=== PATIENT | female | born 1945 | race Two or more races ===

== ENCOUNTER 2023-07-15 11:29 | Inpatient (IN) | payer MEDICARE ==
[~2023-07-15] VITALS: Ht 162.6 cm; Wt 52.2 kg
[2023-07-15 13:15] LABS: CALCIUM, SERUM 9.6 mg/dL (8.5-10.1); CREATININE 0.8 mg/dL (0.6-1.3); POTASSIUM 4.3 mmol/L (3.5-5.1)
[2023-07-15 13:20] LABS: BASOPHILS % (AUTO) 0.7 % (0.0-2.0); EOSINOPHILS # (AUTO) 0.3 K/uL (0.0-0.7); EOSINOPHILS % (AUTO) 3.8 % (0.0-6.0); HEMATOCRIT 37 % (33-45); HEMOGLOBIN 12.2 g/dL (11.5-14.8); LYMPHOCYTES # (AUTO) 1.5 K/uL (0.8-4.8); LYMPHOCYTES % (AUTO) 21.9 % (20.0-44.0); MEAN CORPUSCULAR HEMOGLOBIN 31 PG (26.0-33.0); MEAN CORPUSCULAR HGB CONC 33 g/dl (31.0-36.0); MEAN CORPUSCULAR VOLUME 95 fL (82-100); MONOCYTES # (AUTO) 0.7 K/uL (0.1-1.30); MONOCYTES % (AUTO) 10.7 % (2.0-12.0); NEUTROPHILS # (AUTO) 4.3 K/uL (1.8-8.9); NEUTROPHILS % (AUTO) 62.9 % (43.0-81.0); PLATELET COUNT (AUTO) 137 K/uL (150-450); RED BLOOD CELL COUNT(AUTO) 3.91 MIL/uL (4.0-5.2); RED CELL DISTRIBUTION WIDTH 14.4 % (11.5-15.0); WHITE BLOOD COUNT (AUTO) 6.9 K/uL (4.3-11.0)
[2023-07-15 13:22] LABS: ALBUMIN 3.2 g/dL (3.4-5.0); BILIRUBIN,DIRECT 0.2 mg/dL (0.0-0.2); BILIRUBIN,TOTAL 0.5 mg/dL (0.2-1.0); TOTAL PROTEIN, SERUM 6.9 g/dL (6.4-8.2)
[2023-07-15] MEDS ORDERED: IPRA12.9 IH (13:37)
[2023-07-15] MEDS ORDERED: PARACETAMOL PO (13:37)
[2023-07-15] MEDS ORDERED: QUET25TA PO (13:37)
[2023-07-15] MEDS ORDERED: SALBUTAMOL IH (13:37)
[2023-07-15] MEDS ORDERED: RISP1SOL5 PO (13:37)
[2023-07-15] MEDS ORDERED: LOSA50TA39 PO (13:37)
[2023-07-15] MEDS ORDERED: TAMS-12 PO (13:37)
[2023-07-15] MEDS ORDERED: ATOR40TA PO (13:37)
[2023-07-15] MEDS ORDERED: DONE10TA44 PO (13:37)
[2023-07-15] MEDS ORDERED: MELA3TAB41 PO (13:37)
[2023-07-15] MEDS ORDERED: BUDE180A IH (13:37)
[2023-07-15] MEDS ORDERED: SERT50TA PO (13:37)
[2023-07-15] MEDS ORDERED: ASPI-1169 PO (13:37)
[2023-07-15 18:30] VITALS: BP 106/77; TEMP 97.7; O2SAT 95
[2023-07-15] MEDS ORDERED: ACETAMINOPHEN 325 MG TABLET PO PRN (18:30)
[2023-07-15] MEDS ORDERED: MAG HYDROX/AL HYDROX/SIMETH 30 ML UDC PO PRN (18:30)
[2023-07-15] MEDS ORDERED: Z GUARD REMEDY 4 OZ OINT TP PRN (18:30)
[2023-07-15] MEDS ORDERED: ONDANSETRON HCL/PF 4 MG/2 ML VIAL IVP PRN (18:30)
[2023-07-15] MEDS ORDERED: ZOLPIDEM TARTRATE 5 MG TABLET PO PRN (18:30)
[2023-07-15] MEDS ORDERED: MAGNESIUM HYDROXIDE 30 ML UDC PO PRN (18:30)
[2023-07-15 20:00] VITALS: BP 125/58; TEMP 97.7; O2SAT 98
[2023-07-15] MEDS: ENOXAPARIN SODIUM 40 MG/0.4 ML DISP.SYRIN SQ SCH (20:46)
[2023-07-16 07:47] LABS: BASOPHILS # (AUTO) 0.1 K/uL (0.0-0.2); EOSINOPHILS # (AUTO) 0.2 K/uL (0.0-0.7); EOSINOPHILS % (AUTO) 4.3 % (0.0-6.0); HEMATOCRIT 36 % (33-45); LYMPHOCYTES # (AUTO) 1.3 K/uL (0.8-4.8); LYMPHOCYTES % (AUTO) 22.5 % (20.0-44.0); MEAN CORPUSCULAR HEMOGLOBIN 31 PG (26.0-33.0); MEAN CORPUSCULAR HGB CONC 34 g/dl (31.0-36.0); MEAN CORPUSCULAR VOLUME 93 fL (82-100); MONOCYTES # (AUTO) 0.6 K/uL (0.1-1.30); MONOCYTES % (AUTO) 9.8 % (2.0-12.0); NEUTROPHILS # (AUTO) 3.5 K/uL (1.8-8.9); NEUTROPHILS % (AUTO) 62.4 % (43.0-81.0); PLATELET COUNT (AUTO) 150 K/uL (150-450); RED BLOOD CELL COUNT(AUTO) 3.83 MIL/uL (4.0-5.2); RED CELL DISTRIBUTION WIDTH 13.9 % (11.5-15.0); WHITE BLOOD COUNT (AUTO) 5.6 K/uL (4.3-11.0)
[2023-07-16 08:00] VITALS: BP 122/94; TEMP 98.2; O2SAT 94
[2023-07-16 08:14] LABS: CALCIUM, SERUM 9.4 mg/dL (8.5-10.1); CARBON DIOXIDE 26 mmol/L (21-32); CHLORIDE 106 mmol/L (98-107); CREATININE 0.9 mg/dL (0.6-1.3); GLUCOSE 77 mg/dL (74-106); PHOSPHORUS 3.9 mg/dL (2.5-4.9); POTASSIUM 4.6 mmol/L (3.5-5.1); SODIUM SERUM 139 mmol/L (136-145); UREA NITROGEN, BLOOD 22 mg/dL (7-18)
[2023-07-16 08:29] LABS: THYROID STIMULATING HORMONE 0.652 uIU/mL (0.358-3.74)
[2023-07-16] MEDS: PANTOPRAZOLE 40 MG TABLET.DR PO SCH (09:06)
[2023-07-16 16:00] VITALS: BP_SYST 114; BP_SYST 130; BP_DIAS 70; BP_DIAS 94; TEMP 98.2; O2SAT 94; O2SAT 96
[2023-07-16 20:00] VITALS: BP 103/76; TEMP 98.2; O2SAT 96
[2023-07-16] MEDS: ENOXAPARIN SODIUM 40 MG/0.4 ML DISP.SYRIN SQ SCH (21:09)
[2023-07-17 08:00] VITALS: BP 95/61; TEMP 98.1; O2SAT 99
[2023-07-17] MEDS: PANTOPRAZOLE 40 MG TABLET.DR PO SCH (08:52)
[2023-07-17] MEDS: PROSOURCE / PROSTAT (PYXIS) 30 ML UDC PO SCH ×2 (12:10→17:35)
[2023-07-17] MEDS: ENSURE ENLIVE 237 ML LIQUID (VANILLA) PO SCH (17:35)
[2023-07-17] MEDS: ENOXAPARIN SODIUM 40 MG/0.4 ML DISP.SYRIN SQ SCH (21:17)
[2023-07-18] MEDS: PANTOPRAZOLE 40 MG TABLET.DR PO SCH (07:54)
[2023-07-18 08:00] VITALS: BP 118/67; TEMP 98.4; O2SAT 95
[2023-07-18] MEDS: ENSURE ENLIVE 237 ML LIQUID (VANILLA) PO SCH (08:17)
[2023-07-18] MEDS: PROSOURCE / PROSTAT (PYXIS) 30 ML UDC PO SCH (08:17)
[2023-07-19] MEDS ORDERED: ACET-868 PO (09:04)
[2023-07-19] MEDS ORDERED: ALBU18HF2 IH (09:04)
[2023-07-23] MEDS ORDERED: HYDR-3980 PO (10:28)
[2023-07-23] MEDS ORDERED: LEVO500T90 PO (10:28)
[2023-07-23] MEDS ORDERED: LACT-246 PO (10:28)
[2023-07-23] MEDS ORDERED: Multivit W/Minerals PO (10:28)
== END 2023-07-18 15:55 | DRG 641 ==
LOC: ER 11:35 → MED 16:34
PROVIDERS: ADMIT Student in an Organized Health Care Education/Training Program; ATTEND Nurse Practitioner Family
DX: R62.7 Adult failure to thrive (principal); E44.1 Mild protein-calorie malnutrition; I69.354 Hemiplegia and hemiparesis following cerebral infarction affecting left non-dominant side; Z68.1 Body mass index [BMI] 19.9 or less, adult; D69.6 Thrombocytopenia, unspecified; F03.90 Unspecified dementia, unspecified severity, without behavioral disturbance, psychotic disturbance, mood disturbance, and anxiety; Z79.82 Long term (current) use of aspirin
CPT/HCPCS: 36415; 71045-TC; 80048-TC; 80076-TC; 82962-TC; 83735-TC; 84100-TC; 84443-TC; 85025-TC; 97112-TC; 97116-TC; 97530-TC; G0378; J1650

== ENCOUNTER 2023-07-18 23:31 | Inpatient (IN) | payer MEDICARE ==
[~2023-07-18] VITALS: Ht 170.2 cm; Wt 53.7 kg
[~2023-07-18 23:31] MED LIST: ASPI-1169 PO; ATOR40TA PO; BUDE180A IH; DONE10TA44 PO; IPRA12.9 IH; LOSA50TA39 PO; MELA3TAB41 PO; PARACETAMOL PO; QUET25TA PO; RISP1SOL5 PO; SALBUTAMOL IH; SERT50TA PO; TAMS-12 PO
[2023-07-19 00:38] LABS: BASOPHILS % (AUTO) 0.2 % (0.0-2.0); EOSINOPHILS # (AUTO) 0.1 K/uL (0.0-0.7); EOSINOPHILS % (AUTO) 1.2 % (0.0-6.0); HEMATOCRIT 38 % (33-45); HEMOGLOBIN 12.4 g/dL (11.5-14.8); LYMPHOCYTES # (AUTO) 1.5 K/uL (0.8-4.8); LYMPHOCYTES % (AUTO) 12.5 % (20.0-44.0); MEAN CORPUSCULAR HEMOGLOBIN 31 PG (26.0-33.0); MEAN CORPUSCULAR HGB CONC 33 g/dl (31.0-36.0); MEAN CORPUSCULAR VOLUME 93 fL (82-100); MONOCYTES # (AUTO) 0.9 K/uL (0.1-1.30); MONOCYTES % (AUTO) 7.4 % (2.0-12.0); NEUTROPHILS # (AUTO) 9.6 K/uL (1.8-8.9); NEUTROPHILS % (AUTO) 78.7 % (43.0-81.0); PLATELET COUNT (AUTO) 162 K/uL (150-450); RED BLOOD CELL COUNT(AUTO) 4.06 MIL/uL (4.0-5.2); RED CELL DISTRIBUTION WIDTH 14.1 % (11.5-15.0); WHITE BLOOD COUNT (AUTO) 12.3 K/uL (4.3-11.0)
[2023-07-19 00:49] LABS: CALCIUM, SERUM 9.8 mg/dL (8.5-10.1); CARBON DIOXIDE 24 mmol/L (21-32); CHLORIDE 103 mmol/L (98-107); GLUCOSE 120 mg/dL (74-106); POTASSIUM 4.2 mmol/L (3.5-5.1); SODIUM SERUM 139 mmol/L (136-145); UREA NITROGEN, BLOOD 39 mg/dL (7-18)
[2023-07-19 00:54] LABS: ALANINE AMINOTRANSFERASE 56 U/L (12-78); ALBUMIN 3.5 g/dL (3.4-5.0); ALKALINE PHOSPHATASE 249 U/L (46-116); ASPARTATE AMINOTRANSFERASE 35 U/L (15-37); BILIRUBIN,DIRECT 0.2 mg/dL (0.0-0.2); BILIRUBIN,TOTAL 0.5 mg/dL (0.2-1.0); TOTAL PROTEIN, SERUM 7.1 g/dL (6.4-8.2)
[2023-07-19] MEDS ORDERED: ACETAMINOPHEN ES 500 MG TABLET ONE (01:24)
[2023-07-19] MEDS ORDERED: ACETAMINOPHEN ES 500 MG TABLET PO ONE (01:30)
[2023-07-19] MEDS ORDERED: IV D5/0.45 NACL 1,000 ML IV PRN (06:00)
[2023-07-19] MEDS ORDERED: Z GUARD REMEDY 4 OZ OINT TP PRN (06:00)
[2023-07-19] MEDS ORDERED: ACETAMINOPHEN 650 MG/SUPP.RECT RC PRN (06:00)
[2023-07-19] MEDS ORDERED: ONDANSETRON HCL/PF 4 MG/2 ML VIAL IVP PRN (06:00)
[2023-07-19] MEDS ORDERED: FENTANYL PF 100MCG/2ML AMPUL IV ONE (06:00)
[2023-07-19] MEDS ORDERED: FENTANYL PF 100MCG/2ML AMPUL ONE ×2 (06:11→13:29)
[2023-07-19] MEDS ORDERED: ALBU18HF2 IH (09:04)
[2023-07-19] MEDS ORDERED: ACET-868 PO (09:04)
[2023-07-19] MEDS: PANTOPRAZOLE 40 MG VIAL IV SCH (09:32)
[2023-07-19] MEDS: ENOXAPARIN SODIUM 40 MG/0.4 ML DISP.SYRIN SQ SCH (09:34)
[2023-07-19] MEDS: MORPHINE SULFATE INJ 4 MG/ML DISP.SYRIN IV PRN (09:50)
[2023-07-19 10:30] VITALS: BP 142/71; TEMP 97.8; O2SAT 96
[2023-07-19] MEDS ORDERED: BUPIVACAINE 0.5 % PF 150 MG/30 ML VIAL ONE (12:37)
[2023-07-19] MEDS ORDERED: ANESTHESIA TRAY IN PYXIS 1 EA TRAY MC ONE (12:37)
[2023-07-19] MEDS ORDERED: VANCOMYCIN 1 GM VIAL ONE (12:52)
[2023-07-19] MEDS ORDERED: ROPIVACAINE HCL 0.5% 5 MG/ML 30ML VIAL ONE (13:29)
[2023-07-19] MEDS ORDERED: Magnesium 1 GM/2 ML VIAL ONE (13:29)
[2023-07-19] MEDS ORDERED: ROCURONIUM BROMIDE 50 MG/5 ML ONE (13:30)
[2023-07-19] MEDS ORDERED: FAMOTIDINE/PF INJ 20 MG/2 ML VIAL IV ONE (13:30)
[2023-07-19 13:47] LABS: APPEARANCE,URINE SLIGHTLY CLOUDY (CLEAR); BILIRUBIN,URINE NEGATIVE (NEGATIVE); BLOOD, URINE 2+ Ery/uL (NEGATIVE); COLOR,URINE YELLOW (YELLOW); KETONES,URINE NEGATIVE (NEGATIVE); LEUKOCYTE ESTERASE ,URINE 1+ (NEGATIVE); NITRITE, URINE NEGATIVE (NEGATIVE); PH,URINE 5.5 (5.0-8.0); PROTEIN,URINE NEGATIVE (NEGATIVE); UGLUCOSE NEGATIVE (NEGATIVE); UROBILINOGEN,URINE 0.2 EU/dL (0.2)
[2023-07-19 13:55] LABS: WBC,URINE 21-50 /HPF (0-3)
[2023-07-19 13:56] LABS: ADD URINE CULTURE YES; BACTERIA,URINE Many /HPF (None Seen); SQUAMOUS EPITHELIAL CELL,UR Few /HPF (None Seen)
[2023-07-19 14:41] LABS: INR 1.02 (0.91-1.10); PARTIAL THROMBOPLASTIN TIME 38.6 SEC (24.3-34.3); PROTHROMBIN TIME 10.8 SECS (9.2-11.1)
[2023-07-19] MEDS ORDERED: HYDROMORPHONE 1 MG/1 ML DISP.SYRIN ONE (15:17)
[2023-07-19] MEDS ORDERED: IV D5/0.45 NACL W/20 MEQ KCL 1L IV PRN ×2 (15:30)
[2023-07-19 15:45] VITALS: BP 170/85; TEMP 98.2; O2SAT 96
[2023-07-19 16:00] VITALS: BP 165/83; TEMP 98.3; O2SAT 96
[2023-07-19] MEDS: IV D5/0.45 NACL W/20 MEQ KCL 1L IV SCH ×2 (16:29)
[2023-07-19 16:30] VITALS: BP 145/75; TEMP 98.2; O2SAT 98
[2023-07-19] MEDS: CEFTRIAXONE 1 G in IV D5W 50 ML IV SCH (16:30)
[2023-07-19 17:30] VITALS: BP 143/73; TEMP 98.3; O2SAT 97
[2023-07-19 20:00] VITALS: BP_SYST 103; BP_SYST 98; BP_DIAS 68; BP_DIAS 73; TEMP 97.7; TEMP 98.8; O2SAT 96
[2023-07-19] MEDS: ANCEF 1 GM/50 ML D5W IV SCH ×2 (21:33)
[2023-07-20] MEDS: MORPHINE SULFATE INJ 4 MG/ML DISP.SYRIN IV PRN ×2 (05:35→09:40)
[2023-07-20] MEDS: IV D5/0.45 NACL W/20 MEQ KCL 1L IV SCH ×4 (05:43→20:16)
[2023-07-20] MEDS: ANCEF 1 GM/50 ML D5W IV SCH ×4 (05:57→14:54)
[2023-07-20 06:11] LABS: BASOPHILS % (AUTO) 0.4 % (0.0-2.0); EOSINOPHILS % (AUTO) 0.2 % (0.0-6.0); HEMATOCRIT 29 % (33-45); HEMOGLOBIN 9.7 g/dL (11.5-14.8); LYMPHOCYTES # (AUTO) 0.8 K/uL (0.8-4.8); MEAN CORPUSCULAR HEMOGLOBIN 31 PG (26.0-33.0); MEAN CORPUSCULAR HGB CONC 33 g/dl (31.0-36.0); MEAN CORPUSCULAR VOLUME 94 fL (82-100); MONOCYTES # (AUTO) 0.9 K/uL (0.1-1.30); MONOCYTES % (AUTO) 8.6 % (2.0-12.0); NEUTROPHILS # (AUTO) 8.5 K/uL (1.8-8.9); NEUTROPHILS % (AUTO) 82.8 % (43.0-81.0); PLATELET COUNT (AUTO) 112 K/uL (150-450); RED BLOOD CELL COUNT(AUTO) 3.14 MIL/uL (4.0-5.2); RED CELL DISTRIBUTION WIDTH 14.1 % (11.5-15.0); WHITE BLOOD COUNT (AUTO) 10.2 K/uL (4.3-11.0)
[2023-07-20 06:47] LABS: CARBON DIOXIDE 21 mmol/L (21-32); CHLORIDE 105 mmol/L (98-107); CREATININE 0.8 mg/dL (0.6-1.3); GLUCOSE 143 mg/dL (74-106); MAGNESIUM 2.1 mg/dL (1.8-2.4); PHOSPHORUS 3.5 mg/dL (2.5-4.9); POTASSIUM 4.4 mmol/L (3.5-5.1); SODIUM SERUM 136 mmol/L (136-145); UREA NITROGEN, BLOOD 27 mg/dL (7-18)
[2023-07-20 07:10] LABS: CHOLESTEROL 113 mg/dL (<200); HDL CHOLESTEROL 55 mg/dL (40-60); LDL 48 mg/dL (0-99); THYROID STIMULATING HORMONE 0.977 uIU/mL (0.358-3.74); TRIGLYCERIDES 69 mg/dL (30-150)
[2023-07-20 08:00] VITALS: BP 123/71; TEMP 97.7; O2SAT 97
[2023-07-20] MEDS: PANTOPRAZOLE 40 MG VIAL IV SCH (09:16)
[2023-07-20] MEDS: ENOXAPARIN SODIUM 40 MG/0.4 ML DISP.SYRIN SQ SCH (09:21)
[2023-07-20] MEDS: HYDROCODONE/APAP 10/325MG TABLET PO PRN ×2 (11:51→23:41)
[2023-07-20 14:28] LABS: HEMOGLOBIN 8.7 g/dL (11.5-14.8)
[2023-07-20 15:56] VITALS: BP 111/67; TEMP 97.9; O2SAT 95
[2023-07-20] MEDS: CEFTRIAXONE 1 G in IV D5W 50 ML IV SCH (16:54)
[2023-07-20] MEDS: ENSURE ENLIVE 237 ML LIQUID (VANILLA) PO SCH (17:00)
[2023-07-20] MEDS ORDERED: ENSURE ENLIVE CHOC 237 ML CAN PO SCH (17:00)
[2023-07-20 20:00] VITALS: BP 119/92; TEMP 99.3; O2SAT 96
[2023-07-21 05:53] LABS: BASOPHILS % (AUTO) 0.5 % (0.0-2.0); EOSINOPHILS # (AUTO) 0.3 K/uL (0.0-0.7); EOSINOPHILS % (AUTO) 3.5 % (0.0-6.0); HEMATOCRIT 23 % (33-45); HEMOGLOBIN 7.9 g/dL (11.5-14.8); LYMPHOCYTES # (AUTO) 0.9 K/uL (0.8-4.8); LYMPHOCYTES % (AUTO) 10.5 % (20.0-44.0); MEAN CORPUSCULAR HEMOGLOBIN 31 PG (26.0-33.0); MEAN CORPUSCULAR HGB CONC 34 g/dl (31.0-36.0); MEAN CORPUSCULAR VOLUME 93 fL (82-100); MONOCYTES # (AUTO) 0.7 K/uL (0.1-1.30); MONOCYTES % (AUTO) 7.7 % (2.0-12.0); NEUTROPHILS # (AUTO) 6.6 K/uL (1.8-8.9); NEUTROPHILS % (AUTO) 77.8 % (43.0-81.0); PLATELET COUNT (AUTO) 91 K/uL (150-450); RED BLOOD CELL COUNT(AUTO) 2.52 MIL/uL (4.0-5.2); RED CELL DISTRIBUTION WIDTH 13.6 % (11.5-15.0); WHITE BLOOD COUNT (AUTO) 8.5 K/uL (4.3-11.0)
[2023-07-21 06:14] LABS: EOSINOPHILS % (MANUAL) 2 % (0-4); LYMPHOCYTES % (MANUAL) 7 % (16-48); MONOCYTES % (MANUAL) 4 % (0-11.0); NEUTROPHILS % (MANUAL) 87 (42-76)
[2023-07-21 06:15] LABS: PLATELET ESTIMATE DECREASED
[2023-07-21 06:16] LABS: CALCIUM, SERUM 8.6 mg/dL (8.5-10.1); CARBON DIOXIDE 25 mmol/L (21-32); CHLORIDE 104 mmol/L (98-107); CREATININE 0.9 mg/dL (0.6-1.3); GLUCOSE 114 mg/dL (74-106); MAGNESIUM 2.1 mg/dL (1.8-2.4); PHOSPHORUS 3.4 mg/dL (2.5-4.9); SODIUM SERUM 134 mmol/L (136-145); UREA NITROGEN, BLOOD 24 mg/dL (7-18)
[2023-07-21 07:00] VITALS: BP 107/60; TEMP 97.9; O2SAT 98
[2023-07-21] MEDS: HYDROCODONE/APAP 10/325MG TABLET PO PRN ×2 (07:07→12:59)
[2023-07-21 07:53] LABS: IRON, SERUM 12 ug/dl (50-175); TOTAL IRON BINDING CAPACITY 149 ug/dl (250-450)
[2023-07-21 08:06] LABS: FERRITIN 352 ng/mL (8-388)
[2023-07-21] MEDS: PANTOPRAZOLE 40 MG/PACK PACK PO SCH (08:43)
[2023-07-21] MEDS: ENSURE ENLIVE 237 ML LIQUID (VANILLA) PO SCH ×2 (08:43→17:19)
[2023-07-21] MEDS: MULTIVIT W/MINERALS 1 TAB TABLET PO SCH (08:43)
[2023-07-21] MEDS: ENOXAPARIN SODIUM 40 MG/0.4 ML DISP.SYRIN SQ SCH (08:44)
[2023-07-21] MEDS: IV D5/0.45 NACL W/20 MEQ KCL 1L IV SCH ×4 (08:48→21:17)
[2023-07-21 14:12] LABS: HEMOGLOBIN 7.4 g/dL (11.5-14.8)
[2023-07-21] MEDS: SOD FERRIC GLUC 125 MG in IV NS 0.9% 100 ML IV SCH (15:13)
[2023-07-21 16:00] VITALS: BP 106/53; TEMP 97.8; O2SAT 94
[2023-07-21] MEDS: CEFTRIAXONE 1 G in IV D5W 50 ML IV SCH (17:19)
[2023-07-21 20:00] VITALS: BP 121/63; TEMP 99; O2SAT 93
[2023-07-21 20:45] LABS: HEMOGLOBIN 7.2 g/dL (11.5-14.8)
[2023-07-21] MEDS: ATORVASTATIN 40 MG TABLET PO SCH (21:05)
[2023-07-21] MEDS: DONEPEZIL 5 MG TABLET PO SCH (21:05)
[2023-07-21] MEDS: risperiDONE 1 MG TABLET PO SCH (21:05)
[2023-07-21] MEDS: QUETIAPINE FUMARATE 25 MG TABLET PO SCH (21:06)
[2023-07-21] MEDS: MORPHINE SULFATE INJ 4 MG/ML DISP.SYRIN IV PRN (23:51)
[2023-07-22] VITALS (7 sets, daily range): BP systolic 117–130; BP diastolic 58–70; TEMP 98.4–99; O2SAT 94–100
[2023-07-22 05:47] LABS: BASOPHILS % (AUTO) 0.5 % (0.0-2.0); EOSINOPHILS # (AUTO) 0.5 K/uL (0.0-0.7); HEMATOCRIT 21 % (33-45); LYMPHOCYTES # (AUTO) 0.9 K/uL (0.8-4.8); LYMPHOCYTES % (AUTO) 12.4 % (20.0-44.0); MEAN CORPUSCULAR HEMOGLOBIN 32 PG (26.0-33.0); MEAN CORPUSCULAR HGB CONC 34 g/dl (31.0-36.0); MEAN CORPUSCULAR VOLUME 94 fL (82-100); MONOCYTES # (AUTO) 0.7 K/uL (0.1-1.30); NEUTROPHILS # (AUTO) 5.5 K/uL (1.8-8.9); NEUTROPHILS % (AUTO) 72.1 % (43.0-81.0); PLATELET COUNT (AUTO) 90 K/uL (150-450); RED BLOOD CELL COUNT(AUTO) 2.22 MIL/uL (4.0-5.2); RED CELL DISTRIBUTION WIDTH 14.3 % (11.5-15.0); WHITE BLOOD COUNT (AUTO) 7.6 K/uL (4.3-11.0)
[2023-07-22 06:09] LABS: CALCIUM, SERUM 8.8 mg/dL (8.5-10.1); CREATININE 0.9 mg/dL (0.6-1.3); POTASSIUM 4.1 mmol/L (3.5-5.1)
[2023-07-22 06:10] LABS: MAGNESIUM 2.1 mg/dL (1.8-2.4); PHOSPHORUS 2.8 mg/dL (2.5-4.9)
[2023-07-22 06:40] LABS: EOSINOPHILS % (MANUAL) 4 % (0-4); LYMPHOCYTES % (MANUAL) 14 % (16-48); MONOCYTES % (MANUAL) 11 % (0-11.0); NEUTROPHILS % (MANUAL) 71 (42-76)
[2023-07-22 06:41] LABS: ANISOCYTOSIS 1+; PLATELET ESTIMATE DECREASED
[2023-07-22] MEDS: BUDESONIDE RESPULE INH 0.5 MG/2 ML AMPUL.NEB NEB SCH ×2 (08:11→20:23)
[2023-07-22] MEDS: ENSURE ENLIVE 237 ML LIQUID (VANILLA) PO SCH ×2 (08:41→17:10)
[2023-07-22] MEDS: PANTOPRAZOLE 40 MG/PACK PACK PO SCH (08:41)
[2023-07-22] MEDS: SERTRALINE HCL 50 MG TABLET PO SCH (08:41)
[2023-07-22] MEDS: MULTIVIT W/MINERALS 1 TAB TABLET PO SCH (08:41)
[2023-07-22] MEDS: TAMSULOSIN 0.4 MG CAP.SR.24H PO SCH (08:50)
[2023-07-22] MEDS ORDERED: ASPIRIN 81 MG TAB.CHEW PO SCH (09:00)
[2023-07-22] MEDS: HYDROCODONE/APAP 10/325MG TABLET PO PRN (10:44)
[2023-07-22 13:04] LABS: HEMOGLOBIN 7.6 g/dL (11.5-14.8)
[2023-07-22] MEDS: SOD FERRIC GLUC 125 MG in IV NS 0.9% 100 ML IV SCH (14:32)
[2023-07-22] MEDS: CEFTRIAXONE 1 G in IV D5W 50 ML IV SCH (15:51)
[2023-07-22 19:23] LABS: HEMOGLOBIN 7.3 g/dL (11.5-14.8)
[2023-07-22] MEDS: ATORVASTATIN 40 MG TABLET PO SCH (21:23)
[2023-07-22] MEDS: DONEPEZIL 5 MG TABLET PO SCH (21:23)
[2023-07-22] MEDS: risperiDONE 1 MG TABLET PO SCH (21:23)
[2023-07-22] MEDS: QUETIAPINE FUMARATE 25 MG TABLET PO SCH (21:23)
[2023-07-23 06:35] LABS: BASOPHILS % (AUTO) 0.6 % (0.0-2.0); EOSINOPHILS # (AUTO) 0.3 K/uL (0.0-0.7); EOSINOPHILS % (AUTO) 4.7 % (0.0-6.0); HEMATOCRIT 22 % (33-45); HEMOGLOBIN 7.4 g/dL (11.5-14.8); LYMPHOCYTES # (AUTO) 0.6 K/uL (0.8-4.8); LYMPHOCYTES % (AUTO) 10.2 % (20.0-44.0); MEAN CORPUSCULAR HEMOGLOBIN 31 PG (26.0-33.0); MEAN CORPUSCULAR HGB CONC 33 g/dl (31.0-36.0); MEAN CORPUSCULAR VOLUME 93 fL (82-100); MONOCYTES # (AUTO) 0.7 K/uL (0.1-1.30); MONOCYTES % (AUTO) 10.9 % (2.0-12.0); NEUTROPHILS # (AUTO) 4.6 K/uL (1.8-8.9); NEUTROPHILS % (AUTO) 73.6 % (43.0-81.0); PLATELET COUNT (AUTO) 126 K/uL (150-450); RED CELL DISTRIBUTION WIDTH 14.2 % (11.5-15.0); WHITE BLOOD COUNT (AUTO) 6.2 K/uL (4.3-11.0)
[2023-07-23 06:49] LABS: CALCIUM, SERUM 9.4 mg/dL (8.5-10.1); CREATININE 0.8 mg/dL (0.6-1.3); MAGNESIUM 2.2 mg/dL (1.8-2.4); PHOSPHORUS 3.1 mg/dL (2.5-4.9); POTASSIUM 4.3 mmol/L (3.5-5.1)
[2023-07-23 07:30] VITALS: BP 119/74; TEMP 98.1; O2SAT 95
[2023-07-23] MEDS: PANTOPRAZOLE 40 MG/PACK PACK PO SCH (07:36)
[2023-07-23 07:41] VITALS: O2SAT 96
[2023-07-23] MEDS: BUDESONIDE RESPULE INH 0.5 MG/2 ML AMPUL.NEB NEB SCH (07:41)
[2023-07-23 07:58] VITALS: O2SAT 100
[2023-07-23] MEDS: TAMSULOSIN 0.4 MG CAP.SR.24H PO SCH (09:05)
[2023-07-23] MEDS: SERTRALINE HCL 50 MG TABLET PO SCH (09:05)
[2023-07-23] MEDS: MULTIVIT W/MINERALS 1 TAB TABLET PO SCH (09:05)
[2023-07-23] MEDS: ENSURE ENLIVE 237 ML LIQUID (VANILLA) PO SCH (09:06)
[2023-07-23] MEDS ORDERED: LEVO500T90 PO (10:28)
[2023-07-23] MEDS ORDERED: Multivit W/Minerals PO (10:28)
[2023-07-23] MEDS ORDERED: HYDR-3980 PO (10:28)
[2023-07-23] MEDS ORDERED: LACT-246 PO (10:28)
[2023-07-23] MEDS ORDERED: LEVOFLOXACIN (250MG) 250 MG TABLET PO SCH (11:00)
[2023-07-23] MEDS ORDERED: SOD FERRIC GLUC 125 MG in IV NS 0.9% 100 ML IV SCH ×2 (13:00→14:00)
== END 2023-07-23 14:55 | DRG 480 ==
LOC: ER 23:45 → MED 07-19 08:10
PROVIDERS: ADMIT Nurse Practitioner Family; ATTEND Nurse Practitioner Acute Care
PROC: 0QS706Z Reposition Left Upper Femur with Intramedullary Internal Fixation Device, Open Approach (ICD-10-PCS; principal; 2023-07-19)
DX: S72.142A Displaced intertrochanteric fracture of left femur, initial encounter for closed fracture (principal); G93.41 Metabolic encephalopathy; I69.354 Hemiplegia and hemiparesis following cerebral infarction affecting left non-dominant side; N17.9 Acute kidney failure, unspecified; N39.0 Urinary tract infection, site not specified; W19.XXXA Unspecified fall, initial encounter; Y92.129 Unspecified place in nursing home as the place of occurrence of the external cause; F03.90 Unspecified dementia, unspecified severity, without behavioral disturbance, psychotic disturbance, mood disturbance, and anxiety; Z79.82 Long term (current) use of aspirin; Z79.51 Long term (current) use of inhaled steroids; Z79.899 Other long term (current) drug therapy; F43.9 Reaction to severe stress, unspecified; J45.909 Unspecified asthma, uncomplicated; E78.5 Hyperlipidemia, unspecified; I10 Essential (primary) hypertension; F03.C0 Unspecified dementia, severe, without behavioral disturbance, psychotic disturbance, mood disturbance, and anxiety; B96.89 Other specified bacterial agents as the cause of diseases classified elsewhere; D63.8 Anemia in other chronic diseases classified elsewhere
CPT/HCPCS: 36415; 70450-TC; 71045-TC; 72125-TC; 72192-TC; 73502; 73552; 80048-TC; 80061-TC; 80076-TC; 81001; 82728-TC; 83540-TC; 83735-TC; 84100-TC; 84443-TC; 84484-TC; 85025-TC; 85027-TC; 85610-TC; 85730-TC; 86850-TC; 87086-TC; 93307-TC; 97110-TC; 97112-TC; 97116-TC; 97530-TC; A4223; A6209; C1713; C9113; G0378; J0690; J0696; J1100; J1170; J1650; J2270; J2370; J2405; J2704; J2765; J2795; J2916; J3010; J3370; J3475; J3480; J3490; J7030; J7050; J7060